=== PATIENT | female | born 1950 | race Caucasian/White ===

== ENCOUNTER 2018-03-06 10:03 | Emergency (ER) | payer MEDICARE, BC ==
[2018-03-06] MEDS ORDERED: SODIUM CHLORIDE 0.9% 500 ML IV ONE (10:27)
[2018-03-06] MEDS ORDERED: ONDANSETRON HCL IV 4 MG/2 ML VIAL IV ONE (10:27)
[2018-03-06] MEDS ORDERED: HYDROMORPHONE HCL 2 MG/ML VIAL IVP ONE (10:27)
--- NOTE | 2018-03-06 10:32 | Emergency Department Record ---
History of Present Illness - General Chief Complaint: Abdominal Pain Stated Complaint: ACUTE CONSTIPATION Time Seen by Provider: 03/06/18 10:23 Source: Patient Mode of Arrival: Ambulatory Limitations: No limitations - History of Present Illness Initial Comments: The patient is here due to lower AP for about 6 hours. She has had mild cramping pain for a few days but it got a lot worse 6 hours ago. She has had nausea and one episode of vomiting with it but no diarrhea, fever or dysuria. The patient does have a hx of stones in her kidneys but has never passed one. MD Complaint: Abdominal pain Onset/Timin -: Hour(s) Location: Periumbilical, LLQ Severity: Moderate Severity scale (1-10): 8 Quality: Cramping Consistency: Constant Improves With: Nothing Worsens With: Nothing Associated Symptoms: Denies other symptoms - Related Data Patient : No Hx Age of Menopause: 50 Previous Rx's Medication Instructions Recorded Hydrocodone/Acetaminophen [Metz 1 each PO QID #12 tablet 03/06/18 5-325 Tablet] Ondansetron [Zofran Odt] 4 mg SL .Q4-6H PRN #12 tab.rapdis 03/06/18 Tamsulosin HCl [Flomax] 0.4 mg PO DAILY #5 cap.er.24h 03/06/18 Allergies Allergy/AdvReac Type Severity Reaction Status Date / Time Cephalosporins Allergy Intermediate hives Verified 03/06/18 10:06 Travel Screening - Travel/Exposure Within Last 30 Days Have you traveled within the last 30 days?: No - Travel/Exposure Within Last Year Have you traveled outside the [place] in the last year?: Yes Location Detail:: [facility] - Additonal Travel Details Have you been exposed to anyone with a communicable illness?: No - Travel Symptoms Symptom Screening: None Review of Systems Constitutional: Denies: Chills, Fever Eyes: Denies: Eye discharge ENT: Denies: Congestion Respiratory: Denies: Cough, Dyspnea Cardiovascular: Denies: Arrhythmia, Chest pain Endocrine: Denies: Fatigue Gastrointestinal: Reports: Abdominal pain, Nausea, Vomiting. Denies: Diarrhea Genitourinary: Denies: Dysuria Musculoskeletal: Denies: Arthralgia Skin: Denies: Bruising Past Medical History - SOCIAL HISTORY Smoking Status: Never smoker Alcohol Use: None Drug Use: None - RESPIRATORY Hx Respiratory Disorders: No - CARDIOVASCULAR Hx Cardio Disorders: Yes Hx Hypertension: Yes Comment:: high cholesterol - NEURO Hx Neuro Disorders: No - GI Hx GI Disorders: No - Hx Genitourinary Disorders: Yes Hx Kidney Stones: Yes - ENDOCRINE Hx Endocrine Disorders: Yes Hx Thyroid Disease: Yes - MUSCULOSKELETAL Hx Musculoskeletal Disorders: No - PSYCH Hx Psych Problems: Yes Hx Anxiety: Yes Hx Depression: Yes - HEMATOLOGY/ONCOLOGY Hx Hematology/Oncology Disorders: Yes Hx Anemia: Yes Hx Blood Transfusions: Yes (after child ) Hx Blood Transfusion Reaction: No Family Medical History Any Significant Family History?: Yes Hx Cancer: Mother *Cancer Comment: uterine Hx Diabetes: Mother Hx HTN: Mother Physical Exam - General General Appearance: Alert, Cooperative, No acute distress, Mild distress (due to AP.) - Head Head exam: Atraumatic, Normocephalic - Eye Eye exam: Normal appearance, PERRL - Neck Neck exam: Normal inspection, Full ROM. negative: Tenderness - Respiratory Respiratory exam: Normal lung sounds bilaterally. negative: Respiratory distress - Cardiovascular Cardiovascular Exam: Regular rate, Normal rhythm, Normal heart sounds - GI/Abdominal GI/Abdominal exam: Soft, Tenderness (mild in the LLQ.). negative: Diminished bowel sounds, Guarding, Pulsatile mass, Rebound, Rigid - Extremities Extremities exam: Normal inspection, Full ROM, Normal capillary refill. negative: Tenderness - Back Back exam: Reports: Normal inspection - Neurological Neurological exam: Alert, Oriented X3. negative: Altered, Motor sensory deficit - Psychiatric Psychiatric exam: negative: Anxious Course Vital Signs 03/06/18 10:13 Temperature 98.3 F Pulse Rate 77 Respiratory 20 Rate Blood Pressure 188/85 Pulse Ox 97 - Reevaluation(s) Reevaluation #1: The patient is doing a lot better at this time. Her pain is much improved. 03/06/18 11:41 Reevaluation #2: The patient is doing much better at this time. Her pain is gone now and she is very comfortable. I did discuss the case with Dr. Yañez and he can see the patient tomorrow in the office. If her pain worsens prior to that he would like her to go [place] [facility] [place]. 03/06/18 12:24 Medical Decision Making - Data Complexity MDM Data: Labs Ordered and/or Reviewed, X-Ray Ordered and/or Reviewed - Lab Data Result diagrams: 03/06/18 10:16 03/06/18 10:16 - Radiology Data Radiology results: Report reviewed (CT: distal L ureter stone 8 mm with hydro.) Disposition Disposition: Discharge Clinical Impression: Ureteral stone with hydronephrosis Disposition: Home, Self-Care Condition: (2) Stable Instructions: Renal Colic (ED) Additional Instructions: Please take Metz for pain and use the Zofran for nausea. Also take the Flomax daily until you pass the stone. Please call Dr. Yañez for an appointment tomorrow. Please proceed to [facility] for any worsening symptoms of pain, vomiting, or any fever. Prescriptions: Hydrocodone/Acetaminophen [Metz 5-325 Tablet] 1 each PO QID #12 tablet Ondansetron [Zofran Odt] 4 mg SL .Q4-6H PRN #12 tab.rapdis PRN Reason: Nausea Tamsulosin HCl [Flomax] 0.4 mg PO DAILY #5 cap.er.24h Referrals: NHAN YAÑEZ M.D. [MEDICAL DOCTOR] - Forms: Patient Portal Access Time of Disposition: 12:31 Quality - Quality Measures Quality Measures: N/A - Blood Pressure Screening View Details: Yes Does Patient Have Any of the Following: Active Dx of HTN Blood Pressure Classification: Hypertensive Reading Systolic Measurement: 194 Diastolic Measurement: 94 Screening for High Blood Pressure: Patient Exclusion, Hx of HTN [[id number]]
[2018-03-06 10:47] LABS: BASO % 0.3 % (0-6); EOS % 1.6 % (0-6); GRAN % 76.2 % (47-80); HEMATOCRIT 44.4 % (35.0-47.0); HEMOGLOBIN 15.3 gm/dl (11.6-16.0); LYMPH % 16.7 % (16-45); MEAN CELL VOLUME 92.7 fl (81-97); MEAN CORPUSCULAR HEMOGLOBIN 31.9 pg (27-33); MEAN CORPUSCULAR HGB CONC 34.5 g/dl (32-36); MEAN PLATELET VOLUME 10.5 fl (7.4-10.4); MONO % 5.2 % (0-9); PLATELET COUNT 232 K/uL (130-400); RED BLOOD COUNT 4.79 M/uL (3.80-5.40); RED CELL DISTRIBUTION WIDTH 12.4 % (11.5-14.5); WHITE BLOOD COUNT W/O DIFF 11.5 K/uL (4.2-12.2)
[2018-03-06 10:59] LABS: BLOOD UREA NITROGEN 13 mg/dL (8-23); CREATININE 0.9 mg/dL (0.5-0.9); EST GLOMERULAR FILTRATION RATE > 60 mL/min
[2018-03-06 11:00] LABS: TOTAL PROTEIN 7.9 g/dL (6.6-8.7)
[2018-03-06 11:02] LABS: GLUCOSE,RANDOM 172 mg/dL (74-109)
[2018-03-06 11:05] LABS: ALBUMIN 4.7 g/dL (4.0-5.0); ALKALINE PHOSPHATASE 71 U/L (35-104); ALT/SGPT 38 U/L (<33); AST/SGOT 42 U/L (10.0-35.0); LIPASE 33 U/L (13-60)
[2018-03-06 11:07] LABS: BILIRUBIN,DIRECT < 0.2 mg/dL (0-0.3)
[2018-03-06 11:39] LABS: URINE APPEARANCE CLOUDY; URINE BILIRUBIN NEGATIVE (NEGATIVE); URINE BLOOD LARGE (NEGATIVE); URINE COLOR BROWN; URINE GLUCOSE (UA) NEGATIVE (NEGATIVE); URINE KETONE 15 mg/dL (NEGATIVE); URINE LEUKOCYTE ESTERASE NEGATIVE (NEGATIVE); URINE NITRITE NEGATIVE (NEGATIVE); URINE UROBILINOGEN 0.2 E.U./dL (0.20 - 1.00)
[2018-03-06 11:51] LABS: URINE BACTERIA FEW; URINE SQUAMOUS EPITHELIAL CELL 0 - 2 /hpf; URINE WBC 0 - 2 (0-2/hpf)
[2018-03-06] MEDS ORDERED: ONDANSETRON HCL IV 4 MG/2 ML VIAL IVP ONE (12:32)
--- NOTE | 2018-03-08 05:41 | CT SCAN REPORT ---
DATE: 03/06/2018. EXAM: NONCONTRAST CT OF THE ABDOMEN AND PELVIS. HISTORY: LOWER ABDOMINAL PAIN. A HISTORY OF RENAL STONES WITH PREVIOUS LITHOTRIPSY IN 2015. TECHNIQUE: Noncontrast CT of the abdomen and pelvis. COMPARISON: CT of the abdomen and pelvis dated 07/23/2013. FINDINGS: Minimal bilateral lower lobe atelectasis. Borderline decreased parenchymal attenuation likely compatible with previously seen hepatic steatosis, less prominent on today's examination with likely focal sparing of the gallbladder fossa. Unremarkable noncontrast appearance of the gallbladder, adrenal glands, spleen, and pancreas. Within the distal third of the left ureter there is a calculus measuring up to 8.0 mm with resultant mild to moderate left hydroureteronephrosis. Multiple additional intrarenal left calculi. One punctate calculus in the right kidney. No right-sided hydronephrosis. Mildly distended urinary bladder and an otherwise unremarkable noncontrast appearance. Diffuse colonic diverticulosis without focal colonic thickening or inflammatory changes to suggest acute diverticulitis. Normal appendix. Stomach and small bowel are nondilated. No free air or free fluid. Unremarkable noncontrast appearance of the uterus. The abdominal aorta is minimally calcified and tortuous; nondilated. Degenerative changes of the lumbar spine, most prominent at L5-S1 where there is grade 1 anterolisthesis and disc height loss with diffuse bulge. IMPRESSION: 1. OBSTRUCTING LEFT URETERAL 8.0 MM CALCULUS WITH RESULTANT MILD TO MODERATE LEFT HYDROURETERONEPHROSIS. 2. ADDITIONAL BILATERAL INTRARENAL CALCULI. 3. ADDITIONAL INCIDENTAL/CHRONIC FINDINGS DISCUSSED IN THE BODY OF THE REPORT. JOB NUMBER: [id number] MTDD
== END 2018-03-06 12:50 | disposition home or self-care (01) ==
LOC: ER 10:03
DX: N13.2 Hydronephrosis with renal and ureteral calculous obstruction (principal); R11.2 Nausea with vomiting, unspecified; I10 Essential (primary) hypertension; Z87.442 Personal history of urinary calculi
CPT/HCPCS: 74176; 80048; 80076; 81001; 83690; 85025; 96361; 96374; 96375; 96376; 99284; J2405